=== PATIENT | male | born 1965 | race Two or more races ===

== ENCOUNTER 2018-05-12 22:14 | Emergency (ER) | payer MEDICAID ==
[~2018-05-12] VITALS: Ht 188 cm; Wt 99.8 kg
[2018-05-12 22:33] VITALS: BP 165/97
== END 2018-05-13 00:36 | disposition left against medical advice (07) ==
LOC: ER 22:14
DX: R07.9 Chest pain, unspecified (principal); Z53.21 Procedure and treatment not carried out due to patient leaving prior to being seen by health care provider
CPT/HCPCS: 71045; 93005